=== PATIENT | male | born 1945 | race Caucasian/White ===

== ENCOUNTER 2020-04-19 19:17 | Emergency (ER) | payer MEDICARE, BC ==
[~2020-04-19] VITALS: Ht 185.4 cm; Wt 117.9 kg
[~2020-04-19 19:17] MED LIST: ACETAMINOPHEN325 M1 PO; ADULT LOW DOSE81 MG PO; ALTACE10 M1 PO; ASPIRIN325 PO; AUGMENTIN 875875 MG PO; CARVEDILOL12.5 MG PO; CARVEDILOL6.25 MG PO; CLONIDINE0.1; COREG CR20 MG PO; COUMADIN 2 MG TA2 M1; COUMADIN 3 MG TA3 M1 PO; COUMADIN 5 MG TA5 M1 PO; COZAAR 25 MG TA25 M2; COZAAR 50 MG TA50 M1 PO; COZAAR 50 MG TA50 MG; CRESTOR10 MG PO; EFFIENT10 MG PO; ELIQUIS5 MG PO; FISH OIL 1,0001 EAC5 PO; FLAX OIL1000 MG PO; IMDUR 60 MG TAB60 M1 PO; LISINOPRIL20 MG PO; LIVALO2 MG PO; MATZIM LA240 MG PO; MICARDIS 80 MG80 MG PO; MICARDIS40 MG PO; MULTIVITAMINS PO; MULTIVITAMINS1 EAC7 PO; NITROGLYCERIN0.4 MG SL; NITROGLYCERIN0.4 MG SUBLING; OMEPRAZOLE40 MG PO; PACERONE 200 M200 M1 PO; SORINE 80 MG TA80 M1 PO; STERAPRED DS10 MG PO; TERBINAFINE HC250 MG PO; TIKOSYN.5 PO; VITCB500GO PO
[2020-04-19 20:10] LABS: HEMATOCRIT 42.9 % (42.0-52.0); HEMOGLOBIN 14.6 gm/dL (14.0-18.0); MCH 32.9 pg (26.0-34.0); MCV 96.8 fL (80.0-100.0); MPV 6.7 fl. (7.2-11.1); NUCLEATED RBCS 0 /100WBC; PLATELET COUNT* 240 thou/uL (150-400); RBC 4.43 mil/uL (4.50-6.00); RDW-CV 13.5 % (10.5-14.5)
[2020-04-19 20:14] LABS: CALCIUM 8.1 mg/dL (8.5-10.1); CREATININE 1.4 mg/dL (0.6-1.3); POTASSIUM 3.7 mmol/L (3.5-5.1)
[2020-04-19 20:19] LABS: INR 1.2; PROTIME 11.9 Seconds (9.20-11.50)
[2020-04-19 20:23] LABS: ABSOLUTE BASOPHILS 0.2 thou/uL (0.0-0.2); ABSOLUTE LYMPHOCYTES 1.5 thou/uL (0.8-5.3); ABSOLUTE MONOCYTES 0.3 thou/uL (0.0-1.2); ABSOLUTE NEUTROPHILS 13.1 thou/uL (1.6-8.1); ATYPICAL LYMPHS 2 %
[2020-04-19 20:24] LABS: PLATELET ESTIMATE ADEQUATE
[2020-04-19 20:30] LABS: ALBUMIN 3.6 g/dL (3.4-5.0); TOTAL BILIRUBIN 1.1 mg/dL (<0.1-1.0); TOTAL PROTEIN 7.5 g/dL (6.4-8.2)
[2020-04-19 21:06] LABS: INFLUENZA A ANTIGEN Negative (Negative); INFLUENZA B ANTIGEN Negative (Negative)
[2020-04-19] MEDS ORDERED: PROMETHAZINE-C473 ML PO (21:19)
[2020-04-19] MEDS ORDERED: AMOXICILLIN875 MG PO (21:19)
[2020-04-19 21:54] VITALS: BP 125/62
--- NOTE | 2020-04-20 11:12 | EKG ---
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 : 1945 Requested By: oRseanna Still Order Number: [id number] MD: Khanh Willams Measurements Intervals [place] Rate: 130 P: NE: QRS: -144 QRSD: 152 T: -11 QT: 357 QTc: 525 Interpretive Statements Atrial fibrillation Right bundle branch block Baseline wander in lead(s) II Compared to ECG 05/19/2016 17:56:46 Sinus rhythm no longer present Electronically Signed On 04-20-2020 11:12:39 CDT by Khanh Willams [email or web address] <ELECTRONICALLY SIGNED> By: Khanh Willams MD, FACC 04/20/20 1112 Khanh Willams MD, [facility] /EPI
== END 2020-04-19 21:54 | disposition home or self-care (01) ==
LOC: M.ERS 19:17
PROVIDERS: Personal Emergency Response Attendant
DX: J18.9 Pneumonia, unspecified organism (principal); Z20.828 Contact with and (suspected) exposure to other viral communicable diseases; I48.91 Unspecified atrial fibrillation; I10 Essential (primary) hypertension; Z90.49 Acquired absence of other specified parts of digestive tract; Z79.899 Other long term (current) drug therapy; Z88.8 Allergy status to other drugs, medicaments and biological substances; Z87.891 Personal history of nicotine dependence